=== PATIENT | male | born 1970 | race Two or more races ===

== ENCOUNTER 2022-10-03 20:47 | Inpatient (IN) | payer MEDICAID, OTHER ==
[~2022-10-03] VITALS: Ht 177.8 cm; Wt 100.0 kg
[2022-10-03 21:25] LABS: Basophils # (auto) 0 10 ^3/uL (0-0.2); Basophils % (auto) 0.4 % (0.0-2.0); Eosinophils # (auto) 0 10 ^3/uL (0-0.8); Hematocrit 47.3 % (41.0-53.0); Hemoglobin 16.3 g/dL (13.5-17.5); Lymphocytes # (auto) 1.5 10 ^3/uL (0.4-5.4); Lymphocytes % (auto) 16.9 % (10.0-50.0); Mean Corpuscular Hemoglobin 31.2 pg (28.0-32.0); Mean Corpuscular Hgb Conc. 34.4 g/dL (32.0-36.0); Mean Corpuscular Volume 90.4 fL (80.0-100.0); Monocytes % (auto) 10.6 % (0.0-12.0); Neutrophils # (auto) 6.6 10 ^3/uL (1.6-8.6); Neutrophils % (auto) 72.1 % (37.0-80.0); Nucleated Red Blood Cells % 0.1 %; Red Blood Cells 5.23 10^6/uL (4.5-5.90); Red Cell Distribution Width 14.5 % (11.8-14.3); White Blood Cell 9.2 10^3/uL (4.4-10.8)
[2022-10-03 21:36] LABS: Albumin 3.5 g/dL (3.4-5.0); Calcium 8.7 mg/dL (8.5-10.1); Potassium 3.7 mmol/L (3.5-5.1)
[2022-10-03 21:39] LABS: BUN/Creatinine Ratio 13.2 (10.0-20.0); Bilirubin, Total 0.6 mg/dL (0.2-1.0); Total Protein 7.8 g/dL (6.4-8.2)
[2022-10-03 21:41] LABS: INR 1.11 (0.9-1.15); Partial Thromboplastin Time 25.6 sec (24.6-33.4)
[2022-10-03] MEDS ORDERED: SODIUM CHLORIDE 0.9% 2,000 ML IV ONE (23:00)
[2022-10-03] MEDS ORDERED: LORazepam 2MG/ML-1ML VIAL IV ONE (23:00)
[2022-10-04 00:45] LABS: Urine Bacteria NONE SEEN /hpf (None Seen); Urine Blood 2+ /uL (Negative); Urine Hyaline Cast MOD /lpf (0 - 2); Urine Mucus FEW (None Seen); Urine Specific Gravity 1.029 (1.001-1.035); Urine WBC 2 /hpf (0 - 3)
[2022-10-04] MEDS ORDERED: FOLIC ACID 1 MG in D5W 5% 50 ML INJ ONE (02:30)
[2022-10-04] MEDS ORDERED: LORazepam 2MG/ML-1ML VIAL IV ONE (02:30)
[2022-10-04] MEDS ORDERED: THIAMINE 100mg/ml INJ (200mg/2ml VIAL) IV ONE (02:30)
[2022-10-04] MEDS ORDERED: LACTATED RINGER'S 1,000 ML IV ONE (02:30)
[2022-10-04] MEDS ORDERED: MVI in SODIUM CHLORIDE 0.9% 1,010 ML ONE (02:33)
[2022-10-04] MEDS ORDERED: FOLIC ACID 1 MG, MULTIPLE VITAMIN 10 ML, MAGNESIUM SULF SDV 50% 8 MEQ, THIAMINE INJ 100... INJ SCH ×5 (02:45)
[2022-10-04] MEDS ORDERED: ONDANSETRON HCL 4 MG/2 ML VIAL IV ONE (03:15)
[2022-10-04] MEDS ORDERED: MORPHINE SULFATE INJ 2 MG/ml SYRG IV ONE (03:15)
[2022-10-04] MEDS: SODIUM CHLORIDE 0.9% 1,000 ML IV SCH ×2 (03:30→08:10)
[2022-10-04] MEDS ORDERED: ACETAMINOPHEN 325 MG TAB PO PRN (03:30)
[2022-10-04] MEDS ORDERED: HYDROcodone-ACET 5/325MG TAB PO PRN (03:30)
[2022-10-04] MEDS ORDERED: DOCUSATE SOD 100 MG CAP PO PRN (03:30)
[2022-10-04] MEDS ORDERED: MORPHINE SULFATE INJ 2 MG/ml SYRG IV PRN ×2 (03:30→05:00)
[2022-10-04] MEDS ORDERED: ONDANSETRON HCL 4 MG/2 ML VIAL IV PRN (03:30)
[2022-10-04] MEDS ORDERED: LORazepam 2MG/ML-1ML VIAL IV PRN (03:30)
[2022-10-04] MEDS ORDERED: NITROGLYCERIN 0.4 MG SL TAB SL PRN (05:00)
[2022-10-04 05:34] LABS: Basophils # (auto) 0 10 ^3/uL (0-0.2); Basophils % (auto) 0.3 % (0.0-2.0); Eosinophils # (auto) 0 10 ^3/uL (0-0.8); Eosinophils % (auto) 0.2 % (0.0-7.0); Hematocrit 40.5 % (41.0-53.0); Hemoglobin 14.3 g/dL (13.5-17.5); Lymphocytes # (auto) 0.9 10 ^3/uL (0.4-5.4); Lymphocytes % (auto) 9.4 % (10.0-50.0); Mean Corpuscular Hemoglobin 31.7 pg (28.0-32.0); Mean Corpuscular Hgb Conc. 35.2 g/dL (32.0-36.0); Mean Corpuscular Volume 90.1 fL (80.0-100.0); Monocytes # (auto) 0.9 10 ^3/uL (0-1.3); Monocytes % (auto) 9.2 % (0.0-12.0); Neutrophils % (auto) 80.9 % (37.0-80.0); Nucleated Red Blood Cells % 0.1 %; Red Blood Cells 4.49 10^6/uL (4.5-5.90); Red Cell Distribution Width 14.1 % (11.8-14.3); White Blood Cell 9.9 10^3/uL (4.4-10.8)
[2022-10-04 05:57] LABS: Potassium 3.6 mmol/L (3.5-5.1)
[2022-10-04 06:18] LABS: Albumin 2.9 g/dL (3.4-5.0); BUN/Creatinine Ratio 13.9 (10.0-20.0); Calcium 7.9 mg/dL (8.5-10.1); Total Protein 6.1 g/dL (6.4-8.2)
[2022-10-04] MEDS: PANTOPRAZOLE 40 MG/10 ML VIAL INJ IV SCH ×2 (08:10→22:27)
[2022-10-04] MEDS ORDERED: THIAMINE HCL 100 MG TAB PO SCH (10:00)
[2022-10-04] MEDS ORDERED: FOLIC ACID 1 MG TAB PO SCH (10:00)
[2022-10-04] MEDS ORDERED: MULTIPLE VITAMIN TAB PO SCH (10:00)
[2022-10-04] MEDS ORDERED: chlordiazePOXIDE HCL 25 MG CAP PO PRN (15:00)
[2022-10-05 06:27] LABS: Basophils # (auto) 0 10 ^3/uL (0-0.2); Basophils % (auto) 0.4 % (0.0-2.0); Eosinophils # (auto) 0.2 10 ^3/uL (0-0.8); Hematocrit 38.1 % (41.0-53.0); Hemoglobin 13.1 g/dL (13.5-17.5); Lymphocytes % (auto) 12.7 % (10.0-50.0); Mean Corpuscular Hemoglobin 31.3 pg (28.0-32.0); Mean Corpuscular Hgb Conc. 34.4 g/dL (32.0-36.0); Mean Corpuscular Volume 90.9 fL (80.0-100.0); Monocytes # (auto) 0.6 10 ^3/uL (0-1.3); Monocytes % (auto) 7.2 % (0.0-12.0); Neutrophils # (auto) 6.2 10 ^3/uL (1.6-8.6); Neutrophils % (auto) 77.7 % (37.0-80.0); Nucleated Red Blood Cells % 0.1 %; Red Blood Cells 4.18 10^6/uL (4.5-5.90); Red Cell Distribution Width 14.4 % (11.8-14.3); White Blood Cell 7.9 10^3/uL (4.4-10.8)
[2022-10-05 06:42] LABS: Calcium 8.4 mg/dL (8.5-10.1)
[2022-10-05 06:46] LABS: Albumin 2.7 g/dL (3.4-5.0); BUN/Creatinine Ratio 9.8 (10.0-20.0)
[2022-10-05 06:54] LABS: Total Protein 6.3 g/dL (6.4-8.2)
[2022-10-05 08:02] VITALS: BP 125/75
[2022-10-05] MEDS ORDERED: FOLIC ACID 1 MG, MULTIPLE VITAMIN 10 ML, MAGNESIUM SULF SDV 50% 8 MEQ, THIAMINE INJ 100... INJ SCH ×5 (12:00)
== END 2022-10-05 08:40 | disposition left against medical advice (07) | DRG 422 ==
LOC: EDBD 20:47 → ER 20:47 → TELE 10-04 04:56
PROVIDERS: ADMIT Nurse Practitioner Family; ATTEND Nurse Practitioner Family
DX: E86.0 Dehydration (principal); E88.89 Other specified metabolic disorders; K92.0 Hematemesis; K76.0 Fatty (change of) liver, not elsewhere classified; E87.1 Hypo-osmolality and hyponatremia; F10.139 Alcohol abuse with withdrawal, unspecified; Y90.8 Blood alcohol level of 240 mg/100 ml or more; F41.9 Anxiety disorder, unspecified; Z53.29 Procedure and treatment not carried out because of patient's decision for other reasons
CPT/HCPCS: 36415; 71045; 74176; 80053; 80320; 81001; 83690; 83735; 84484; 85025; 85610; 85730; 93005; 96361; 96365; 96375; C9113; G0378; J2405; J7060